=== PATIENT | male | born 1995 | race African-American/Black ===

== ENCOUNTER 2024-09-28 21:34 | Inpatient (IN) | payer OTHER ==
[~2024-09-28] VITALS: Ht 177.8 cm; Wt 75.9 kg
[2024-09-28 22:22] LABS: BASOPHILS % (AUTO) 0.4 % (0.0-2.0); EOSINOPHILS % (AUTO) 1.6 % (1.0-6.0); HEMATOCRIT 51.1 % (41-53); LYMPHOCYTES # (AUTO) 1.8 K/uL (1.0-4.8); LYMPHOCYTES % (AUTO) 11.1 % (22.0-44.0); MEAN CORPUSCULAR HEMOGLOBIN 31.5 pg (26.0-34.0); MEAN CORPUSCULAR HGB CONC 33.2 G/dL (31.0-37.0); MEAN CORPUSCULAR VOLUME 95 fL (80-100); MONOCYTES # (AUTO) 1.1 K/uL (0.1-1.0); NEUTROPHILS # (AUTO) 12.6 K/uL (1.8-7.7); NEUTROPHILS % (AUTO) 79.9 % (40.0-70.0); PLATELET COUNT (AUTO) 127 K/uL (150-450); RED BLOOD CELL COUNT(AUTO) 5.38 MIL/uL (4.50-5.90); RED CELL DISTRIBUTION WIDTH 12.4 % (11.5-14.5); WHITE BLOOD COUNT (AUTO) 15.7 K/uL (4.5-11.0)
[2024-09-28 22:24] LABS: ANION GAP 14 mmol/L (8-16); CALCIUM, TOTAL 9.8 mg/dL (8.8-10.5); CARBON DIOXIDE 24 mmol/L (22-29); CHLORIDE 101 mmol/L (98-107); CREATININE 1.02 mg/dL (0.60-1.30); GLOMERULAR FILTR. RATE CALC > 60 mL/min (>60); GLUCOSE,RANDOM 115 mg/dL (70-110); POTASSIUM 3.7 mmol/L (3.5-5.1); SODIUM SERUM 139 mmol/L (136-145); UREA NITROGEN, BLOOD 14 mg/dL (7-18)
[2024-09-28] MEDS ORDERED: SODIUM CHLORIDE 0.9% 100 ML ONE (22:25)
[2024-09-28] MEDS ORDERED: IOHEXOL 350 MG/ML 100 ML VIAL ONE (22:25)
[2024-09-28 22:35] LABS: ALBUMIN 4.7 g/dL (3.4-5.0); BILIRUBIN,DIRECT 0.1 mg/dL (0.00-0.20); BILIRUBIN,TOTAL 0.7 mg/dL (0.1-1.0); TOTAL PROTEIN, SERUM 8.6 g/dL (6.4-8.2)
[2024-09-28] MEDS: HYDROmorphone HCL 2 MG/ML SYRINGE IVP ONE (22:43)
[2024-09-28] MEDS: SODIUM CHLORIDE 0.9% 1,000 ML IV ONE (22:43)
[2024-09-28] MEDS: PANTOPRAZOLE SODIUM 40 MG/VIAL IVP ONE (22:43)
[2024-09-28] MEDS: METOCLOPRAMIDE HCL 5 MG/ML 2 ML VIAL IVP ONE (22:43)
[2024-09-28 23:16] LABS: LACTIC ACID 1.8 mmol/L (0.4-2.0)
[2024-09-29] MEDS: HYDROmorphone HCL 2 MG/ML SYRINGE IVP ONE (01:06)
[2024-09-29] MEDS: PIPERACILLIN/TAZO 3.375 GM/D5W 50 ML IV ONE (01:25)
[2024-09-29] MEDS: SODIUM CHLORIDE 0.9% 1,000 ML IV ONE (05:56)
[2024-09-29] MEDS: MORPHINE SULFATE 4 MG/ML SYRINGE IVP PRN (05:56)
[2024-09-29] MEDS: ACETAMINOPHEN 325 MG TABLET PO PRN (07:42)
[2024-09-29 08:15] LABS: APPEARANCE,URINE CLEAR (CLEAR); BILIRUBIN,URINE NEGATIVE (NEGATIVE); COLOR,URINE LIGHT YELLOW (YELLOW); GLUCOSE, URINE (UA) NEGATIVE (NEGATIVE); LEUKOCYTE ESTERASE ,URINE NEGATIVE (NEGATIVE); NITRATE,URINE NEGATIVE (NEGATIVE); OCCULT BLOOD,URINE NEGATIVE (NEGATIVE); PROTEIN,URINE TRACE mg/dL (NEGATIVE); UROBILINOGEN,URINE <=1.0 mg/dL (<=1.0)
[2024-09-29 08:22] LABS: SPECIFIC GRAVITIY, URINE > 1.030 (1.003-1.030)
[2024-09-29] MEDS: PANTOPRAZOLE SODIUM 40 MG/VIAL IVP SCH (09:00)
[2024-09-29] MEDS: DOCUSATE SODIUM 100 MG CAPSULE PO SCH (09:00)
[2024-09-29] MEDS: ONDANSETRON HCL 4 MG/2 ML VIAL IVP PRN (09:11)
[2024-09-29] MEDS ORDERED: PROPOFOL 1% 20 ML VIAL IVP ONE (12:00)
[2024-09-29] MEDS ORDERED: ONDANSETRON HCL 4 MG/2 ML VIAL ONE (12:00)
[2024-09-29] MEDS ORDERED: DEXAMETHASONE SOD PHOS 4 MG/ML VIAL ONE (12:00)
[2024-09-29] MEDS ORDERED: LIDOCAINE/PF 2% 5 ML VIAL ONE (12:00)
[2024-09-29] MEDS ORDERED: ROCURONIUM BROMIDE 10 MG/ML 5 ML VIAL ONE (12:00)
[2024-09-29] MEDS ORDERED: GLYCOPYRROLATE 0.2 MG/ML VIAL ONE (12:00)
[2024-09-29] MEDS ORDERED: FentaNYL CITRATE PF 100 MCG/2 ML VIAL ONE (12:00)
[2024-09-29] MEDS ORDERED: MIDAZOLAM HCL 2 MG/2 ML VIAL ONE (12:00)
[2024-09-29] MEDS ORDERED: SUCCINYLCHOLINE CHLORIDE 20 MG/ML 10 ML VIAL ONE (12:00)
[2024-09-29] MEDS ORDERED: CeFAZolin SODIUM 1 GM VIAL ONE (12:00)
[2024-09-29] MEDS ORDERED: SUGAMMADEX SODIUM 200 MG/2 ML VIAL IVP ONE (12:00)
[2024-09-29 14:00] VITALS: BP 117/62; PULSE 51; RESP 18; TEMP 99.4; O2SAT 99
[2024-09-29] MEDS ORDERED: SODIUM CHLORIDE 0.9% 1,000 ML ONE ×2 (14:21→15:47)
[2024-09-29] MEDS: CHLORHEXIDINE GLUCONATE 2% TOWELETTE [2'S/6'S] TP ONE (15:01)
[2024-09-29] MEDS: ETHYL ALCOHOL 62% ANTISEPTIC NASAL SANITIZER 0.6 ML AMPUL NASAL ONE (15:01)
[2024-09-29] MEDS ORDERED: MetroNIDAZOLE 500 MG/NACL 100 ML IV ONE (15:37)
[2024-09-29] MEDS ORDERED: HYDROmorphone HCL 2 MG/ML SYRINGE IVP PRN ×3 (15:45)
[2024-09-29] MEDS ORDERED: RINGERS SOLUTION,LACTATED 1,000 ML IV ONE (15:59)
[2024-09-29] MEDS: BUPIVACAINE 0.25%/EPI 1:200,000/PF 10 ML VIAL ONE (16:45)
[2024-09-29 19:02] VITALS: BP 117/60; PULSE 74; RESP 18; TEMP 98.4; O2SAT 99
[2024-09-29] MEDS: MORPHINE SULFATE 2 MG/ML SYRINGE IVP ONE (20:36)
[2024-09-29] MEDS: RINGERS SOLUTION,LACTATED 1,000 ML IV SCH (22:50)
[2024-09-29] MEDS: KETOROLAC TROMETHAMINE 15 MG/ML VIAL IVP SCH (23:54)
[2024-09-30 04:08] VITALS: BP 111/64; PULSE 63; RESP 18; TEMP 98.1; O2SAT 97
[2024-09-30 08:03] VITALS: BP 115/59; PULSE 67; RESP 18; TEMP 97.9; O2SAT 97
[2024-09-30] MEDS: HYDROmorphone HCL 2 MG/ML SYRINGE IVP PRN (08:27)
[2024-09-30] MEDS: DIATRIZOATE MEGLU/SOD 660/100 MG/ML 120 ML BOTTLE NG ONE (11:22)
[2024-09-30 14:51] VITALS: BP 126/58; PULSE 55; RESP 18; TEMP 98.4; O2SAT 100
[2024-09-30 20:30] VITALS: BP 137/78; PULSE 59; RESP 18; TEMP 97.9; O2SAT 100
[2024-10-01 04:53] VITALS: BP 116/57; PULSE 53; RESP 14; TEMP 97.9; O2SAT 97
[2024-10-01 19:20] VITALS: BP 118/55; PULSE 54; RESP 18; TEMP 97.7; O2SAT 96
[2024-10-02 08:00] VITALS: BP 114/74; PULSE 50; RESP 20; TEMP 98.1; O2SAT 99
[2024-10-02] MEDS ORDERED: DOCU-119 PO (10:06)
[2024-10-02] MEDS ORDERED: ACET-784 PO (10:07)
[2024-10-02] MEDS: DOCUSATE SODIUM 100 MG CAPSULE PO SCH (10:27)
[2024-10-02 11:53] LABS: BASOPHILS % (AUTO) 0.2 % (0.0-2.0); HEMATOCRIT 42.8 % (41-53); HEMOGLOBIN 14.6 g/dL (13.5-17.5); LYMPHOCYTES # (AUTO) 1.1 K/uL (1.0-4.8); LYMPHOCYTES % (AUTO) 20.1 % (22.0-44.0); MEAN CORPUSCULAR HEMOGLOBIN 31.5 pg (26.0-34.0); MEAN CORPUSCULAR HGB CONC 34.2 G/dL (31.0-37.0); MEAN CORPUSCULAR VOLUME 92 fL (80-100); MONOCYTES # (AUTO) 0.7 K/uL (0.1-1.0); MONOCYTES % (AUTO) 13.1 % (2.0-9.0); NEUTROPHILS # (AUTO) 3.3 K/uL (1.8-7.7); NEUTROPHILS % (AUTO) 58.6 % (40.0-70.0); PLATELET COUNT (AUTO) 192 K/uL (150-450); RED BLOOD CELL COUNT(AUTO) 4.65 MIL/uL (4.50-5.90); RED CELL DISTRIBUTION WIDTH 12.4 % (11.5-14.5); WHITE BLOOD COUNT (AUTO) 5.7 K/uL (4.5-11.0)
[2024-10-02 12:03] LABS: ANION GAP 3 mmol/L (8-16); CALCIUM, TOTAL 8.7 mg/dL (8.8-10.5); CARBON DIOXIDE 31 mmol/L (22-29); CHLORIDE 106 mmol/L (98-107); CREATININE 1.06 mg/dL (0.60-1.30); GLOMERULAR FILTR. RATE CALC > 60 mL/min (>60); GLUCOSE,RANDOM 92 mg/dL (70-110); POTASSIUM 3.7 mmol/L (3.5-5.1); SODIUM SERUM 140 mmol/L (136-145); UREA NITROGEN, BLOOD 11 mg/dL (7-18)
[2024-10-02 19:43] VITALS: BP 132/74; PULSE 54; RESP 19; TEMP 97.9; O2SAT 100
== END 2024-10-02 20:30 | DRG 337 ==
LOC: EMS 21:34 → EDH 09-29 05:12 → 6S 09-29 08:54
PROVIDERS: ADMIT Internal Medicine; ATTEND Internal Medicine
PROC: 0D9770Z Drainage of Stomach, Pylorus with Drainage Device, Via Natural or Artificial Opening (ICD-10-PCS; 2024-09-29)
PROC: 0DN84ZZ Release Small Intestine, Percutaneous Endoscopic Approach (ICD-10-PCS; principal; 2024-09-29 15:00)
DX: K56.50 Intestinal adhesions [bands], unspecified as to partial versus complete obstruction (principal); J45.909 Unspecified asthma, uncomplicated
CPT/HCPCS: 74018; 74177; 80048; 80076; 81003; 83605; 83690; 85025; 86850; 86900; 86901; 87040; 87081; 93005; 96361; 96365; 96375; 96376; 99285; J0330; J0690; J1100; J1171; J1885; J2250; J2270; J2405; J2470; J2543; J2704; J2765; J3010; J3490; J7030; J7050; J7120; 36415-L1; 36415-TC